=== PATIENT | female | born 1990 | race Caucasian/White ===

== ENCOUNTER 2023-08-03 17:51 | Emergency (ER) | payer SELFPAY ==
[2023-08-03 18:07] VITALS: BP 128/88; PULSE 87; RESP 16; TEMP 37.5; O2SAT 99
--- NOTE | 2023-08-03 18:11 | ED.FEMALEGU ---
HPI - Female Genitourinary General Stated complaint: UTI Time Seen by Provider: 08/03/23 18:10 Source: patient Mode of arrival: ambulatory Limitations: no limitations History of Present Illness HPI Narrative: Hope is a 33-year-old female patient presenting to the clinic today with complaints of possible UTI. She reports she is having burning with urination, frequency, and urgency since last night. Denies any fever, chills, body aches, low back pain, or lower abdomen pain. She denies any vaginal discharge or odor. She denies any chance of being . Related Data Home Medications Medication Instructions Recorded Confirmed norethindrone 1 mg-ethinyl 1 tablet PO DAILY 05/06/21 08/03/23 estradiol 20 mcg ()-iron 75 mg (7) tablet (June FE 06/26 ()) cranberry fruit concentrate 250 mg 250 mg PO TID 07/23/21 08/03/23 chewable tablet (Azo Cranberry) omeprazole 20 mg tablet,delayed 20 mg PO DAILY 07/23/21 08/03/23 release psyllium husk (with sugar) 3.4 1 tbsp PO DAILY 07/23/21 08/03/23 gram/12 gram oral powder (Fiber (psyllium husk-sugar)) Allergies Allergy/AdvReac Type Severity Reaction Status Date / Time nitrofurantoin Allergy Mild Unknown Verified 08/03/23 18:12 Review of Systems Review of Systems: Pertinent positives per HPI. Patient denies any fever, chills, rash, headache, visual changes, dizziness, cough, runny nose, sore throat, shortness of breath, chest pain, palpitations, nausea, vomiting, diarrhea, constipation, abdominal pain, or any urinary issues. [facility] Past Medical History Medical History Anxiety Surgical History Surgical History History of eye surgery 1997 Family History Family History Father Diabetes mellitus Hypertension Mother Diabetes mellitus Hypertension Thyroid disorder Sibling Anxiety Grandparent Diabetes mellitus Thyroid disorder Heart disease Social History Social History (Updated 07/23/21 @ 09:50 by Sue Abebe CMA) Smoking status: Never smoker Second hand tobacco smoke exposure: No Alcohol intake: never Substance use: never Agree to blood products: Yes Comments At the time of my signature, I reviewed and agree with the nursing past medical, surgical, social, and family history. There is no relevant family history pertinent to the patient complaint. Exam Narrative: Pertinent positives per HPI. Patient denies any fever, chills, rash, headache, visual changes, dizziness, cough, runny nose, sore throat, shortness of breath, chest pain, palpitations, nausea, vomiting, diarrhea, constipation, abdominal pain. Course Course Emergency Course: Portions of this record may have been created with voice recognition software. Level of Care: Express Care Visit Vital Signs Vital signs: Vital Signs Temperature 37.5 C 08/03/23 18:07 Pulse Rate 87 08/03/23 18:07 Respiratory Rate 16 08/03/23 18:07 Blood Pressure 128/88 08/03/23 18:07 Pulse Oximetry 99 08/03/23 18:07 Oxygen Delivery Room Air 08/03/23 18:07 Temperature 37.5 C 08/03/23 18:07 Pulse Rate 87 08/03/23 18:07 Respiratory Rate 16 08/03/23 18:07 Blood Pressure 128/88 08/03/23 18:07 Pulse Oximetry 99 08/03/23 18:07 Oxygen Delivery Room Air 08/03/23 18:07 Vital signs reviewed MDM - Female Genitourinary MDM Narrative Medical decision making narrative: At the time of visit patient is resting comfortably on the exam table. Patient appears to be nontoxic. Labs: UA is negative for any sign of infection, blood, protein, or ketones. We will send urine for culture per request of the patient Plan: I suspect patient has UTI symptoms. Recommend taking azo for symptoms. We will send urine for culture. Supportive measures were discussed with the patien
== END 2023-08-03 18:22 | disposition home or self-care (01) ==
PROVIDERS: Emergency Provider Nurse Practitioner Family
DX: R30.0 Dysuria (principal); R35.0 Frequency of micturition; R39.15 Urgency of urination; Z79.899 Other long term (current) drug therapy
CPT/HCPCS: 81003; 87086; 99213; G0463